=== PATIENT | female | born 1970 | race African-American/Black ===

== ENCOUNTER 2016-12-29 17:36 | Emergency (ER) | payer BC, OTHER ==
[~2016-12-29] VITALS: Ht 170.2 cm; Wt 99.8 kg
[~2016-12-29 17:36] MED LIST: AMLODIPINE BESY10 MG PO; APAP W/CODEINE1 TA2 PO; CLONIDINE HCL0.3 M3; HCTZ; HYDROCHLOROTH12.5 M1; INDERAL; KEFLEX500 MG PO; LISINOPRIL10 MG; NAPROSYN500 MG PO; NIFEDIPINE; ZOFRAN ODT4 MG PO
[2016-12-29] MEDS ORDERED: HYDROXYCHLOROQ200 M1 PO (17:50)
[2016-12-29] MEDS ORDERED: TRAMADOL 50 MG50 MG PO (17:50)
[2016-12-29] MEDS ORDERED: CYMBALTA20 MG PO (17:50)
[2016-12-29] MEDS ORDERED: FLEXERIL PO (17:50)
[2016-12-29 19:44] LABS: BASOPHILS 1.2 % (0.0-2.0); EOSINOPHILS 2.2 % (0.0-3.0); HEMATOCRIT 30.3 % (37.0-47.0); HEMOGLOBIN 9.7 gm/dL (12.0-15.0); LYMPHOCYTES 22.4 % (24.0-44.0); MCH 22.4 pg (26.0-34.0); MONOCYTES 7.7 % (1.0-8.0); PLATELET COUNT 379 thou/uL (150-400); POLYS 66.5 % (36.0-66.0); RBC 4.32 mil/uL (4.20-5.00); RDW 16.6 % (10.5-14.5)
[2016-12-29 19:45] LABS: MANUAL DIFF NO
[2016-12-29 19:47] LABS: CALCIUM 8.4 mg/dL (8.5-10.1); CREATININE 0.9 mg/dL (0.6-1.0); POTASSIUM 3.3 mmol/L (3.5-5.1)
[2016-12-29 19:52] LABS: ALBUMIN 3.4 g/dL (3.4-5.0); TOTAL BILIRUBIN 0.1 mg/dL (<0.1-1.0); TOTAL PROTEIN 7.2 g/dL (6.4-8.2)
[2016-12-29] MEDS ORDERED: BACTROBAN NASAL1 GM NASAL (20:10)
[2016-12-29] MEDS ORDERED: NAPROSYN500 MG PO (20:10)
[2016-12-29 20:26] LABS: ANISOCYTOSIS 1+; BURR CELLS 2+; MICROCYTES 2+; PLATELET ESTIMATE NORMAL; POLYCHROMASIA SLIGHT
[2016-12-29 21:01] VITALS: BP 163/99
== END 2016-12-29 21:02 | disposition home or self-care (01) ==
LOC: ER 17:36
PROVIDERS: Nurse Practitioner Family
DX: R51 Headache (principal); L08.9 Local infection of the skin and subcutaneous tissue, unspecified; I10 Essential (primary) hypertension; F10.99 Alcohol use, unspecified with unspecified alcohol-induced disorder; Z98.890 Other specified postprocedural states